=== PATIENT | male | born 2000 | race Caucasian/White ===

== ENCOUNTER 2022-02-03 10:30 | Emergency (ER) | payer OTHER ==
[~2022-02-03] VITALS: Ht 182.9 cm; Wt 81.8 kg
[2022-02-03 10:42] VITALS: BP 126/73
[2022-02-03] MEDS ORDERED: VALACYCLOVIR HCL1 GM PO (11:22)
== END 2022-02-03 11:47 | disposition home or self-care (01) | DRG 156 ==
LOC: ED 10:30
DX: B00.1 Herpesviral vesicular dermatitis (principal)